=== PATIENT | male | born 1965 ===

== ENCOUNTER 2021-02-16 11:15 | Inpatient (IN) | payer OTHER ==
[~2021-02-16] VITALS: Ht 172.7 cm; Wt 97.1 kg
[2021-02-16] MEDS ORDERED: CELLCEPT500 MG PO (13:46)
[2021-02-16] MEDS ORDERED: ACID REDUCER20 M1 (13:47)
[2021-02-16] MEDS ORDERED: CHILDREN'S ASPI81 MG PO (13:47)
[2021-02-16] MEDS ORDERED: TACROLIMUS1 MG PO (13:47)
[2021-02-16] MEDS ORDERED: VIREAD300 MG PO (13:48)
[2021-02-21] MEDS ORDERED: ULTRACET PO (08:11)
== END 2021-02-21 13:17 | disposition home or self-care (01) | DRG 349 ==
LOC: O/R 02-20 06:42 → SURH 02-20 06:42
PROVIDERS: ADMIT Surgery; ATTEND Surgery
PROC: 3E0F7SF Introduction of Other Gas into Respiratory Tract, Via Natural or Artificial Opening (ICD-10-PCS; 2021-02-20)
PROC: 0DBP7ZZ Excision of Rectum, Via Natural or Artificial Opening (ICD-10-PCS; principal; 2021-02-20 14:15)
DX: D12.2 Benign neoplasm of ascending colon (principal); K62.1 Rectal polyp; Z20.822 Contact with and (suspected) exposure to COVID-19